=== PATIENT | female | born 1960 | race Caucasian/White ===

== ENCOUNTER 2017-01-03 08:53 | Emergency (ER) | payer MEDICAID ==
[~2017-01-03] VITALS: Ht 162.6 cm; Wt 95.0 kg
[~2017-01-03 08:53] MED LIST: ALBU18HF IH; BACL-19 PO; CLOP75TA22 PO; DIVA250T4 PO; DOCU-30 PO; FLUT1DIS3 INH; HYDR25TA11 PO; LEVE500T53 PO; NITR0.4T8 SL; OMEP20CA9 PO; PANT40TA5 PO; PHEN100C PO; PHEN60TA PO; TOPI200T25 PO; [UNRECOGNIZED DRUG - CODE] PO
[2017-01-03] MEDS ORDERED: SODIUM CHLORIDE 0.9% 1,000 ML IV ONE (09:28)
[2017-01-03] MEDS ORDERED: FAMOTIDINE 20 MG/2 ML IVP ONE (09:30)
[2017-01-03] MEDS ORDERED: LORazepam 2 MG/ML, 1ML IVPush ONE (09:30)
[2017-01-03] MEDS ORDERED: MAALOX/HYOSCYAMINE/LIDOCAINE 45 ML BOTTLE PO ONE (09:30)
[2017-01-03] MEDS ORDERED: FAMOTIDINE 20 MG/2 ML ONE (10:48)
[2017-01-03] MEDS ORDERED: MAALOX/HYOSCYAMINE/LIDOCAINE 45 ML BOTTLE ONE (10:48)
[2017-01-03] MEDS ORDERED: LORazepam 2 MG/ML, 1ML ONE (10:49)
[2017-01-03 11:03] LABS: ASPARTATE AMINO TRANSFERASE 21 U/L (15-37); BLOOD UREA NITROGEN 19 mg/dL (7-18)
[2017-01-03 15:01] VITALS: BP 138/79
== END 2017-01-03 16:53 | disposition home or self-care (01) ==
LOC: ED 12:23
DX: S09.90XA Unspecified injury of head, initial encounter (principal); R56.9 Unspecified convulsions; I10 Essential (primary) hypertension; E11.9 Type 2 diabetes mellitus without complications; Z90.710 Acquired absence of both cervix and uterus; Z90.49 Acquired absence of other specified parts of digestive tract; X58.XXXA Exposure to other specified factors, initial encounter; Y93.89 Activity, other specified; Y92.89 Other specified places as the place of occurrence of the external cause; Y99.9 Unspecified external cause status
CPT/HCPCS: 36415; 70450; 71010; 80053; 80164; 80184; 80185; 81003; 85025; 85610; 86677; 93005; 96361; 96374; 96375; 99285; J2060; J7030; S0028